=== PATIENT | male | born 1980 ===

== ENCOUNTER 2025-08-11 12:10 | Outpatient (CLI) | payer OTHER, SELFPAY ==
--- NOTE | ~2025-08-11 | XR_ITS ---
Examination: XR shoulder LT min 2V Clinical History: pain in left shoulder Comparison: None Technique: 4 views left shoulder Findings/impression: 1. No fracture or dislocation. Reviewed, dictated and finalized at location R. [place] [employer]
== END 2025-08-11 12:11 | disposition home or self-care (01) ==
DX: M25.512 Pain in left shoulder (principal)
CPT/HCPCS: 73030